=== PATIENT | female | born 1995 | race Caucasian/White ===

== ENCOUNTER 2018-09-21 12:47 | Emergency (ER) | payer OTHER ==
[2018-09-21 13:13] VITALS: BP 113/90
--- NOTE | 2018-09-21 13:27 | UC ---
Throat Pain/Nasal Manas HPI - HPI Summary HPI Summary: 22 year old female presents with 3 day history of sore throat. Associated with subjective fever and chills. States has history of recurrent strep. Denies ear pain, nasal congestion or drainage, dysphagia, cough, chest pain, shortness of breath, abdominal pain, nausea, or vomiting. - History of Current Complaint Chief Complaint: UCGeneralIllness Stated Complaint: SORE THROAT Time Seen by Provider: 09/21/18 13:05 Hx Obtained From: Patient Hx Last Menstrual Period: 08/28/18 Onset/Duration: Gradual Onset, Lasting Days - 3 Severity: Moderate Pain Intensity: 6 Cough: None Associated Signs & Symptoms: Positive: Fever. Negative: Dysphagia, Drooling, Hoarseness, Sinus Discomfort, Nasal Discharge, Vomiting - Allergies/Home Medications Allergies/Adverse Reactions: Allergies Allergy/AdvReac Type Severity Reaction Status Date / Time No Known Allergies Allergy Verified 09/21/18 13:07 Home Medications: Home Medications Ibuprofen/Pseudoephedrine HCl [Advil Cold & Sinus] 1 tab PO ONCE 09/21/18 [ History Confirmed 09/21/18] PMH/Surg Hx/FS Hx/Imm Hx Previously Healthy: Yes - Denies significant PMH - Surgical History Surgical History: None - Family History Family History: Noncontributory - Social History Occupation: Student Lives: Dormitory/Roommates Alcohol Use: Occasionally Substance Use Type: None Smoking Status (MU): Never Smoked Tobacco Review of Systems Constitutional: Fever Skin: Negative Eyes: Negative ENT: Sore Throat Respiratory: Negative Cardiovascular: Negative Gastrointestinal: Negative Is Patient Immunocompromised?: No All Other Systems Reviewed And Are Negative: Yes Physical Exam Triage Information Reviewed: Yes Appearance: Well-Appearing, No Pain Distress, Well-Nourished Vital Signs: Initial Vital Signs Temp 99.3 F 09/21/18 13:07 Pulse 109 09/21/18 13:07 Resp 13 09/21/18 13:07 BP 113/90 09/21/18 13:07 Pulse Ox 99 09/21/18 13:07 Vital Signs Reviewed: Yes Eyes: Positive: Conjunctiva Clear. Negative: Discharge ENT: Positive: Hearing grossly normal, Pharyngeal erythema, TMs normal, Tonsillar swelling - 1+, Tonsillar exudate - Bilateral, Uvula midline. Negative : Nasal congestion, Nasal drainage, Trismus, Muffled voice, Sinus tenderness Neck: Positive: Supple, Nontender, No Lymphadenopathy Respiratory: Positive: Lungs clear, Normal breath sounds, No respiratory distress Cardiovascular: Positive: RRR, No Murmur Abdomen Description: Positive: Nontender, No Organomegaly, Soft. Negative: Distended, Guarding Neurological: Positive: Alert Skin Exam: Normal Diagnostics - Laboratory Diagnostic Studies Completed/Ordered: Rapid strep negative. Throat culture pending. Throat Pain/Nasal Course/Dx - Course Course Of Treatment: 22 year old female with 3 day history of sore throat with subjective fever. Afebrile. Exam revealed pharyngeal erythema with mild tonsillar edema and exudate. Rapid strep negative. Likely viral however with her history of recurrent strep will send throat culture. Recommend symptomatic treatment. She is to follow up with PCP or [facility] if symptoms persist. Warning symptoms revierwed. Verbalizes understanding and agrees with POC. - Differential Dx/Diagnosis Provider Diagnoses: Pharyngitis Discharge - Sign-Out/Discharge Documenting (check all that apply): Patient Departure All imaging exams completed and their final reports reviewed: No Studies - Discharge Plan Condition: Stable Disposition: HOME Patient Education Materials: Pharyngitis (ED) Referrals: No Primary Care Phys,NOPCP [Primary Care Provider] - Additional Instructions: Your rapid strep test in the clinic today was negative. Your symptoms are likely from a viral infection however with your past history of recurrent strep we will send a throat culture to ensure that this is not strep. It will take 48- 72 hours to get these results. Viral infections do not respond to antibiotics and typically run their course over 7-10 days. Use salt water gargles several times a day for your sore throat. Take acetaminophen (Tylenol) or ibuprofen (Advil, Motrin) according to directions as needed for fever or pain. You may also use Chloraseptic spray or Cepacol lozenges for some temporary pain relief from your sore throat. Follow-up with your primary care provider or at the [facility] in 7 days if symptoms persist. Seek immediate medical attention if you have a persistent fever greater than 100.5 F despite taking acetaminophen or ibuprofen, you are unable to swallow, has difficulty breathing, or have any worsening of symptoms. - Billing Disposition and Condition Condition: STABLE Disposition: Home
== END 2018-09-21 13:56 | disposition home or self-care (01) ==
LOC: UCCORT 12:47
DX: J02.9 Acute pharyngitis, unspecified (principal)
CPT/HCPCS: 87070; 87651; 99201; G0463